=== PATIENT | male | born 1935 | race Caucasian/White ===

== ENCOUNTER → 2016-07-06 | Outpatient (CLI) | payer MEDICARE, OTHER ==
[~2016-07-06] MED LIST: COZAAR100 MG PO; FLOMAX0.4 MG PO; GLUCOPHAGE500 MG PO; VITAMIN B122500 MCG PO
== END | disposition short-term general hospital (02) ==
LOC: CLUROL 05-11 09:50
DX: N40.0 Benign prostatic hyperplasia without lower urinary tract symptoms (principal); R97.20 Elevated prostate specific antigen [PSA]